=== PATIENT | female | born 1980 | race Two or more races ===

== ENCOUNTER 2020-02-09 12:41 | Outpatient (CLI) | payer BC ==
[2020-02-09 13:33] LABS: BASOPHILS # (AUTO) 0.02 x10^3/uL (0-0.1); BASOPHILS % (AUTO) 0 % (0-1); EOSINOPHILS # (AUTO) 0.09 x10^3/uL (0-0.4); EOSINOPHILS % (AUTO) 1 % (1-7); LYMPHOCYTES # (AUTO) 2.26 x10^3/uL (1-3.4); LYMPHOCYTES % (AUTO) 23 % (22-44); MD NO; MEAN CORPUSCULAR HEMOGLOBIN 29.7 pg (27.0-34.8); MEAN CORPUSCULAR HGB CONC 33.2 g/dL (32.4-35.8); MEAN PLATELET VOLUME 9.1 fL (7.4-10.4); MONOCYTES # (AUTO) 0.63 x10^3/uL (0.2-0.8); MONOCYTES % (AUTO) 6 % (2-9); NEUTROPHILS # (AUTO) 6.95 x10^3/uL (1.8-6.8); NEUTROPHILS % (AUTO) 70 % (42-75); PLATELET COUNT 318 x10^3/uL (130-400); RED BLOOD COUNT 4.69 x10^6/uL (3.82-5.3); RED CELL DISTRIBUTION WIDTH 13.3 % (9.6-15.2)
[2020-02-09 13:39] LABS: HCG UR SG 1.023 (1.003-1.030)
[2020-02-09 13:40] LABS: ANION GAP 8 mmol/L (5-15); CALCIUM 8.7 mg/dL (8.5-10.1); CHLORIDE 108 mmol/L (98-107); CREATININE 0.79 mg/dL (0.55-1.02)
[2020-02-13] MEDS ORDERED: NO MEDS PER PT (10:41)
== END 2020-02-09 23:59 | disposition home or self-care (01) ==
LOC: STAR 12:41
PROVIDERS: ATTEND Obstetrics & Gynecology
DX: Z01.818 Encounter for other preprocedural examination (principal); N80.9 Endometriosis, unspecified; N83.209 Unspecified ovarian cyst, unspecified side
CPT/HCPCS: 36415; 80048; 81025; 85025; 93005

== ENCOUNTER 2020-03-26 11:20 | Emergency (ER) | payer BC ==
[~2020-03-26] VITALS: Ht 167.6 cm; Wt 68.3 kg
[~2020-03-26 11:20] MED LIST: NO MEDS PER PT
--- NOTE | 2020-03-26 12:01 | NUR ---
PT CAME IN CO OF ABD PAIN FROM HER SURGICAL INCISION SITE. PT HAD AN OVARIAN CYST REMOVED IN EARLY FEBRUARY. PT STATES THERE HAS BEEN "FLUID AND JELLY LEAKING FROM SITE". THE SURGICAL SITE BELOW NAVAL IS ABOUT AN 1/2" LONG AND IS CLEAN AND DRY CURRENTLY. THERE IS MINOR REDNESS AROUND THE SITE. PT STATES "I FEELS LIKE THERE IS A HEARTBEAT INSIDE OF IT". HER SECOND SURGICAL SITE ON HERE PUBIC AREA HAS HEALED NICELY. PT IS RESTING IN [facility].
[2020-03-26] MEDS ORDERED: MORPHINE SULFATE 4 MG/ML, 1ML IVPush PRN (12:30)
[2020-03-26] MEDS ORDERED: SODIUM CHLORIDE FLUSH 10ML SYR IVF ONE (12:30)
[2020-03-26] MEDS ORDERED: ONDANSETRON 2MG/ML, 2ML IVPush ONE (12:30)
[2020-03-26 12:56] LABS: BASOPHILS # (AUTO) 0.02 x10^3/uL (0-0.1); BASOPHILS % (AUTO) 0 % (0-1); EOSINOPHILS # (AUTO) 0.05 x10^3/uL (0-0.4); EOSINOPHILS % (AUTO) 1 % (1-7); LYMPHOCYTES # (AUTO) 2.13 x10^3/uL (1-3.4); LYMPHOCYTES % (AUTO) 36 % (22-44); MD NO; MEAN CORPUSCULAR HEMOGLOBIN 29.6 pg (27.0-34.8); MEAN CORPUSCULAR HGB CONC 33.2 g/dL (32.4-35.8); MEAN CORPUSCULAR VOLUME 89.3 fL (80-100); MEAN PLATELET VOLUME 8.6 fL (7.4-10.4); MONOCYTES # (AUTO) 0.44 x10^3/uL (0.2-0.8); MONOCYTES % (AUTO) 7 % (2-9); NEUTROPHILS # (AUTO) 3.36 x10^3/uL (1.8-6.8); NEUTROPHILS % (AUTO) 56 % (42-75); PLATELET COUNT 351 x10^3/uL (130-400); RED BLOOD COUNT 4.18 x10^6/uL (3.82-5.3); RED CELL DISTRIBUTION WIDTH 13.2 % (9.6-15.2)
[2020-03-26 12:58] LABS: ALBUMIN 3.7 g/dL (3.4-5.0); ANION GAP 5 mmol/L (5-15); CALCIUM 8.9 mg/dL (8.5-10.1); CHLORIDE 110 mmol/L (98-107); CREATININE 0.67 mg/dL (0.55-1.02)
--- NOTE | 2020-03-26 13:30 | NUR ---
URINE SENT TO LAB
[2020-03-26 13:40] LABS: MICROSCOPIC NOT IND
[2020-03-26] MEDS ORDERED: OMNIPAQUE 350 MG/ML, 100ML BOTTLE ONE (13:59)
[2020-03-26 16:13] VITALS: BP 116/78
--- NOTE | 2020-03-26 16:14 | NUR ---
TASK RN: Patient/Caregiver given discharge instructions and they have confirmed that they understand the instructions. Patient ambulatory with steady gait.
== END 2020-03-26 16:18 | disposition home or self-care (01) ==
LOC: ED 12:19
DX: N83.202 Unspecified ovarian cyst, left side (principal); N83.201 Unspecified ovarian cyst, right side
CPT/HCPCS: 36415; 74177; 80048; 81003; 82040; 85025; 99285; Q9967